=== PATIENT | female | born 1985 | race Caucasian/White ===

== ENCOUNTER 2024-01-09 21:57 | Emergency (ER) | payer SELFPAY ==
--- NOTE | ~2024-01-09 | CT_ITS ---
EXAMINATION: CT HEAD WITHOUT CONTRAST CT CERVICAL SPINE WITHOUT CONTRAST CLINICAL INFORMATION: Trauma. Pain. COMPARISON: None available. TECHNIQUE: Contiguous axial imaging was performed from the skull base to vertex without intravenous administration of contrast. This CT examination was performed using dose optimization techniques as appropriate, variously including the following: *Automated exposure control *Adjustment of mA and/or kV according to patient size (this includes techniques or standardized protocols for targeted exams where dose is matched to indication/reason for exam; i.e. extremities or head) *Use of iterative reconstruction technique DLP: 967 mGy-cm FINDINGS: The lateral, third and fourth ventricles are normally outlined. The cortical sulci and basal cisterns are normally outlined as well. There is no acute territorial defect, hemorrhage or midline shift. The extra-axial spaces are unremarkable. Calvarium/scalp: Intact. Clear as visualized. Cervical spine: The alignment is normal. Mild diffuse cervical disc degenerative change most pronounced at C5-6 and C6-7 with loss of disc space, endplate change and posterior osteophytes associated with mild/early diffuse facet osteoarthritic hypertrophic changes with multilevel mild spinal canal and multilevel mild neural foraminal narrowing. The bone mineralization is normal. There is no fracture. Soft tissues are unremarkable. The visualized upper lung vee are clear. CT/CT head/brain wo IV con IMPRESSION: 1. No acute intracranial pathology. 2. No acute fracture or malalignment of the cervical spine. 3. Mild diffuse cervical disc degenerative changes most pronounced at C5-6 and C6-7 with multilevel mild spinal canal and multilevel mild neural foraminal narrowings. Electronically signed by: Chiki Briones MD 01/10/2024 12:09 AM EDT
--- NOTE | ~2024-01-09 | CT_ITS ---
EXAMINATION: CT HEAD WITHOUT CONTRAST CT CERVICAL SPINE WITHOUT CONTRAST CLINICAL INFORMATION: Trauma. Pain. COMPARISON: None available. TECHNIQUE: Contiguous axial imaging was performed from the skull base to vertex without intravenous administration of contrast. This CT examination was performed using dose optimization techniques as appropriate, variously including the following: *Automated exposure control *Adjustment of mA and/or kV according to patient size (this includes techniques or standardized protocols for targeted exams where dose is matched to indication/reason for exam; i.e. extremities or head) *Use of iterative reconstruction technique DLP: 967 mGy-cm FINDINGS: The lateral, third and fourth ventricles are normally outlined. The cortical sulci and basal cisterns are normally outlined as well. There is no acute territorial defect, hemorrhage or midline shift. The extra-axial spaces are unremarkable. Calvarium/scalp: Intact. Clear as visualized. Cervical spine: The alignment is normal. Mild diffuse cervical disc degenerative change most pronounced at C5-6 and C6-7 with loss of disc space, endplate change and posterior osteophytes associated with mild/early diffuse facet osteoarthritic hypertrophic changes with multilevel mild spinal canal and multilevel mild neural foraminal narrowing. The bone mineralization is normal. There is no fracture. Soft tissues are unremarkable. The visualized upper lung vee are clear. CT/CT cervical spine wo IV con IMPRESSION: 1. No acute intracranial pathology. 2. No acute fracture or malalignment of the cervical spine. 3. Mild diffuse cervical disc degenerative changes most pronounced at C5-6 and C6-7 with multilevel mild spinal canal and multilevel mild neural foraminal narrowings. Electronically signed by: Chiki Briones MD 01/10/2024 12:09 AM EDT
[2024-01-09 21:59] VITALS: BP 116/75; PULSE 96; RESP 16; TEMP 36.5; O2SAT 98; BMI 21.5
--- NOTE | 2024-01-09 22:04 | ECG_ITS ---
Test Reason : CHEST PAIN Blood Pressure : / mmHG Vent. Rate : 082 BPM Atrial Rate : 082 BPM P-R Int : 138 ms QRS Dur : 072 ms QT Int : 406 ms P-R-T Axes : 059 026 024 degrees QTc Int : 474 ms Normal sinus rhythm Normal ECG No previous ECGs available Referred By: Generic ED Physician Electronically Signed By:JANETTE COOPER
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
[2024-01-09 23:13] LABS: MANUAL DIFF FLAG NO
[2024-01-09 23:15] LABS: Basophils Absolute Auto 0.1 X10*3/uL (0.0-0.2); Basophils Percent Auto 0.6 % (0-2); Eosinophils Absolute Auto 0.1 X10*3/uL (0.0-0.4); Hematocrit 35.4 % (37.0-47.0); Hemoglobin 11.9 g/dl (12.0-16.0); Imm Gran Abs Auto 0.03 X10*3/uL (0.00-0.03); Imm Gran Pct Auto 0.3 % (0.0-0.4); Lymphocytes Absolute Auto 2.3 X10*3/uL (1.2-4.9); Mean Corpuscular HGB Conc 33.6 g/dl (31.0-35.0); Mean Corpuscular Hemoglobin 30.1 pg (27.0-33.0); Mean Corpuscular Volume 89.4 fL (80.0-98.0); Mean Platelet Volume 8.7 fL (9.4-12.3); Monocytes Absolute Auto 0.7 X10*3/uL (0.1-1.2); Monocytes Percent Auto 7.3 % (2-11); Neutrophils Absolute Auto 6.8 x10*3/uL (2.0-8.3); Neutrophils Percent Auto 67.8 % (45-73); Platelet Count 374 X10*3/uL (160-400); Red Blood Count 3.96 X10*6/uL (4.20-5.50); Red Cell Distribution Width 15.9 % (11.0-16.0)
[2024-01-09 23:35] LABS: Alanine Aminotransferase 148 U/L (0-31); Albumin Level 3.8 g/dL (3.5-5.0); Alkaline Phosphatase 73 U/L (39-117); Anion Gap 12 (12-20); Aspartate Amino Transferase 58 U/L (5-31); Bilirubin Total 0.7 mg/dL (0.0-1.0); Blood Urea Nitrogen 17 mg/dL (9-16); Calcium 9.3 mg/dL (8.4-10.2); Carbon Dioxide 27 mmol/L (22-29); Chloride 112 mmol/L (96-108); Creatinine Clr Calc Pharmacy 45.1; Estimated Glomerular Filt Rate 49; Glucose Random 105 mg/dL (60-115); HCG Quantitative < 2 mIU/mL; Potassium 3.6 mmol/L (3.3-5.1); Sodium 147 mmol/L (135-145); Total Protein 6.6 g/dL (6.5-8.0)
[2024-01-10 01:27] VITALS: RESP 18
[2024-01-10] MEDS: Ketorolac Tromethamine 15 MG/ML VIAL IVPUSH (01:27)
[2024-01-10] MEDS: Morphine Sulfate 2 MG/ML CARTRIDGE 1 MG IVPUSH (01:27)
[2024-01-10] MEDS: diphenhydrAMINE HCL 50 MG/ML VIAL 25 MG IVPUSH (01:27)
[2024-01-10] MEDS: Metoclopramide HCl 10 MG/2 ML VIAL IVPUSH (01:27)
[2024-01-10 01:52] VITALS: BP 136/66; PULSE 66; RESP 16; TEMP 36.7; O2SAT 97
[2024-01-10] MEDS: Post Exposure Medication Kit 1 KIT PO (02:43)
[2024-01-10 04:25] VITALS: BP 126/68; PULSE 99; RESP 16; TEMP 36.9; O2SAT 95
[2024-01-10 04:27] LABS: HBS Num1 31.11 mIU/mL (0-7.99); HBc Num1 0.16 S/CO (0.00-0.79); HIV AB/AG Nonreactive (Nonreactive); Hepatitis B Core Antibody Nonreactive (Nonreactive); Hepatitis B Surface Antigen Negative (Negative); ~HepC Num1 0.54 S/CO (0.00-0.79); ~Hepatitis B Surface Antibody REACTIVE (Nonreactive); ~Hepatitis C Antibody Nonreactive (Nonreactive)
[2024-01-10 07:13] VITALS: RESP 18
[2024-01-10] MEDS: droPERidol 5 MG/2 ML VIAL 1.25 MG IVPUSH (07:13)
[2024-01-10] MEDS: 0.9 % Sodium Chloride 1,000 ML 999 ML IV (07:13)
[2024-01-10] MEDS: Morphine Sulfate 4 MG/ML CARTRIDGE IVPUSH (07:13)
[2024-01-10 07:19] VITALS: BP 107/61; PULSE 69; RESP 20; TEMP 36.9; O2SAT 97
--- NOTE | 2024-01-10 08:12 | PC.NURSE ---
Dr. Coats at bedside. Pt reports she has no one of getting back home to [place]. Reports not having a cell phone or knowing any family members phone numbers. Pt reports she wants to speak to care team for increase depression. Denies SI/HI.
--- NOTE | 2024-01-10 08:25 | PC.NURSE ---
Pt states she can't give a urine sample at this time. Pt aware of plan of care.
[2024-01-10 08:32] LABS: Ethanol < 10 mg/dL
--- NOTE | 2024-01-10 08:36 | MHC.CM.ED ---
Received case mangement consult from Dr Coats. Care Team eval is pending. CM consult will be deferred until cleared by Care Team.
--- NOTE | 2024-01-10 10:37 | PC.NURSE ---
iv removed, urine obtained. pt to be seen by recovery
[2024-01-10 10:54] LABS: Appearance Urine Turbid; Color Urine Yellow; Glucose Urine UA Negative (Negative); Leukocyte Esterase Urine Moderate (2+) (Negative); Nitrite Urine Negative (Negative); PH 7.5 (5.0-9.0); Specific Gravity - Urine 1.025 (1.005-1.025); UMIC TRIGGER UACC YES; Urine Blood Negative (Negative); Urine Ketones Negative (Negative); Urine Protein Trace mg/dL (Neg-Trace)
[2024-01-10 11:08] LABS: Amphetamine Screen Urine Not Detected (Not Detect); Barbiturates, Urine Not Detected (Not Detect); Benzodiazepines Screen Urine Not Detected (Not Detect); Buprenorphine Scr Not Detected (Not Detect); Cannabinoid Screen Urine POSITIVE (Not Detect); Cocaine Screen Urine POSITIVE (Not Detect); Fentanyl, urine POSITIVE (Not Detect); Methadone Screen, Urine Not Detected (Not Detect); Opiate Screen Urine POSITIVE (Not Detect); Oxycodone Screen Urine Not Detected (Not Detect); Phencyclidine Screen Urine Not Detected (Not Detect)
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
[2024-01-10] MEDS: methADONE HCl 10 MG TABLET 20 MG PO (11:19)
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
[2024-01-10 12:29] VITALS: BP 107/61; PULSE 69; RESP 20; TEMP 36.9; O2SAT 97
[2024-01-10 12:36] LABS: Bacteria Urine 4+ (None Seen); Hyaline Casts Urine 0-2 /LPF (0-2); RBC Urine 0-2 /HPF (0-2); Squamous Epithelial Cell Urine 0-2 /HPF (0-2); UACC Culture Trigger YES; WBC Urine >50 /HPF (0-5)
--- NOTE | 2024-01-10 14:16 | MHC.RECOVRN ---
Met with pt this morning after cleared by CARE Team to discuss supports and disposition. Pt laying in bed, awake, alert, easily engages in conversation, appears uncomfortable and diaphoretic. 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 Denies use of other substances. Pt currently reports restlessness, yawning, chills. Requesting methadone to address withdrawal symptoms. Pt reports she began using opiates approx one year ago after a boyfriend (now ex) introduced her. Pt reports she has never had methadone or Suboxone. Pt reports she is currently staying in a [facility] senior [facility] in [place]. Pt reports she has supports there, including her disaster recovery consultant. Pt would like to address withdrawal symptoms and return to women[facility] senior care. Denies other questions or concerns for t/w. Discussed with ED provider, plan to administer 20 mg methadone for comfort and Lyft pt to senior care.
== END 2024-01-10 12:31 | disposition home or self-care (01) ==
PROVIDERS: Emergency Medicine; Physician Assistant Medical; Emergency Provider Student in an Organized Health Care Education/Training Program
DX: S00.93XA Contusion of unspecified part of head, initial encounter (principal); S16.1XXA Strain of muscle, fascia and tendon at neck level, initial encounter; G43.909 Migraine, unspecified, not intractable, without status migrainosus; F41.9 Anxiety disorder, unspecified; M54.2 Cervicalgia; R11.0 Nausea; R30.0 Dysuria; R10.2 Pelvic and perineal pain; Y04.2XXA Assault by strike against or bumped into by another person, initial encounter; Y93.89 Activity, other specified; Y92.810 Car as the place of occurrence of the external cause; Y99.8 Other external cause status; Z51.81 Encounter for therapeutic drug level monitoring; Z79.899 Other long term (current) drug therapy
CPT/HCPCS: 36415; 70450; 72125; 80053; 80307; 81001; 84702; 85025; 86704; 86706; 86803; 87086; 87088; 87186; 87340; 87389; 93005; 96361; 96374; 96375; 96376; 99284; J1200; J1790; J1885; J2270; J2765